=== PATIENT | male | born 1985 | race Caucasian/White ===

== ENCOUNTER 2023-01-21 10:26 | Emergency (ER) | payer OTHER ==
[~2023-01-21] VITALS: Ht 182.8 cm; Wt 125.6 kg
[2023-01-21 10:46] LABS: BASOPHILS % (AUTO) 1 % (0-10); EOSINOPHILS # (AUTO) 0.1 10^3/uL (0.0-0.3); EOSINOPHILS % (AUTO) 1 % (0-10); HEMATOCRIT 49 % (40-54); HEMOGLOBIN 17.1 g/dL (13.3-17.7); LYMPHOCYTES % (AUTO) 33 % (12-44); MEAN CORPUSCULAR HEMOGLOBIN 32 pg (25-34); MEAN CORPUSCULAR HGB CONC 35 g/dL (32-36); MEAN CORPUSCULAR VOLUME 91 fL (80-99); MEAN PLATELET VOLUME 11.2 fL (9.0-12.2); MONOCYTES # (AUTO) 0.4 10^3/uL (0.0-1.0); MONOCYTES % (AUTO) 7 % (0-12); NEUTROPHILS # (AUTO) 3.5 10^3/uL (1.8-7.8); NEUTROPHILS % (AUTO) 58 % (42-75); PLATELET COUNT 177 10^3/uL (130-400); WHITE BLOOD COUNT 6.1 10^3/uL (4.3-11.0)
[2023-01-21 10:52] LABS: ALBUMIN 4.8 GM/DL (3.2-4.5); CHLORIDE 109 MMOL/L (98-107); POTASSIUM 4.2 MMOL/L (3.6-5.0); SODIUM 138 MMOL/L (135-145)
[2023-01-21 10:53] LABS: CALCIUM 9.5 MG/DL (8.5-10.1)
[2023-01-21 10:54] LABS: GLUCOSE 122 MG/DL (70-105); TOTAL PROTEIN 7.6 GM/DL (6.4-8.2)
[2023-01-21 10:55] LABS: CARBON DIOXIDE 20 MMOL/L (21-32)
[2023-01-21 10:56] LABS: BILIRUBIN,TOTAL 0.7 MG/DL (0.1-1.0)
[2023-01-21 10:58] LABS: ALKALINE PHOSPHATASE 55 U/L (40-136); CREATININE SERUM 0.88 MG/DL (0.60-1.30); GFR ESTIMATED 114
[2023-01-21 10:59] LABS: BUN/CREATININE RATIO 16
[2023-01-21 11:01] LABS: ALANINE AMINOTRANSFERASE 62 U/L (0-55); MAGNESIUM 2.1 MG/DL (1.6-2.4)
[2023-01-21 11:03] LABS: INR 0.9 (0.8-1.4); PROTHROMBIN TIME PATIENT 12.9 SEC (12.2-14.7)
--- NOTE | 2023-01-21 11:03 | ED Chest Pain ---
General Chief Complaint: Chest Pain Stated Complaint: CHEST PAIN | HX OF DIABETES AND HYPERTENSION Nursing Triage Note: PT AMB TO [facility] 1 WITH WITH C/O CP ON AND OFF SINCE YESTERDAY. PT STATES THE PAIN STARTED YESTERDAY WHILE AT WORK AND THE PAIN IS OVER HIS L HALEY Source: patient Exam Limitations: no limitations History of Present Illness Date Seen by Provider: Jan 21, 2023 Time Seen by Provider: 10:42 Allergies and Home Medications Allergies Coded Allergies: Penicillins (Verified Allergy, Unknown, 01/21/23) Patient Home Medication List Home Medication List Reviewed: Yes Past Xrjiipz-Diuzdo-Nahryy Hx Patient Social History Tobacco Use?: Yes Tobacco type used: Cigars Smoking Status: Current Someday Smoker Substance use?: No Alcohol Use?: Yes Alcohol Frequency: Rarely Pt feels they are or have been: No Immunizations Up To Date Influenza Vaccine Up-to-Date: No; Not Current Past Medical History Surgery/Hospitalization HX: DM TONSILS Physical Exam Vital Signs Vital Signs - First Documented 01/21/23 10:29 Temp 36.2 Pulse 80 Resp 14 B/P (MAP) 126/85 (99) Pulse Ox 98 O2 Delivery Room Air Capillary Refill : Height, Weight, BMI Height: '" Weight: lbs. oz. kg; 37.00 BMI Method: Progress/Results/Core Measures Results/Orders Lab Results Laboratory Tests Test 01/21/23 10:44 01/21/23 12:46 Range/Units White Blood Count 6.1 4.3-11.0 10^3/uL Red Blood Count 5.40 4.30-5.52 10^6/uL Hemoglobin 17.1 13.3-17.7 g/dL Hematocrit 49 40-54 % Mean Corpuscular Volume 91 80-99 fL Mean Corpuscular Hemoglobin 32 25-34 pg Mean Corpuscular Hemoglobin Concent 35 32-36 g/dL Red Cell Distribution Width 11.8 10.0-14.5 % Platelet Count 177 130-400 10^3/uL Mean Platelet Volume 11.2 9.0-12.2 fL Immature Granulocyte % (Auto) 0 % Neutrophils (%) (Auto) 58 42-75 % Lymphocytes (%) (Auto) 33 12-44 % Monocytes (%) (Auto) 7 0-12 % Eosinophils (%) (Auto) 1 0-10 % Basophils (%) (Auto) 1 0-10 % Neutrophils # (Auto) 3.5 1.8-7.8 10^3/uL Lymphocytes # (Auto) 2.0 1.0-4.0 10^3/uL Monocytes # (Auto) 0.4 0.0-1.0 10^3/uL Eosinophils # (Auto) 0.1 0.0-0.3 10^3/uL Basophils # (Auto) 0.0 0.0-0.1 10^3/uL Immature Granulocyte # (Auto) 0.0 0.0-0.1 10^3/uL Prothrombin Time 12.9 12.2-14.7 SEC INR Comment 0.9 0.8-1.4 Activated Partial Thromboplast Time 32 24-35 SEC Sodium Level 138 135-145 MMOL/L Potassium Level 4.2 3.6-5.0 MMOL/L Chloride Level 109 H 98-107 MMOL/L Carbon Dioxide Level 20 L 21-32 MMOL/L Anion Gap 9 5-14 MMOL/L Blood Urea Nitrogen 14 7-18 MG/DL Creatinine 0.88 0.60-1.30 MG/DL Estimat Glomerular Filtration Rate 114 BUN/Creatinine Ratio 16 Glucose Level 122 H 70-105 MG/DL Calcium Level 9.5 8.5-10.1 MG/DL Corrected Calcium 8.5-10.1 MG/DL Magnesium Level 2.1 1.6-2.4 MG/DL Total Bilirubin 0.7 0.1-1.0 MG/DL Aspartate Amino Transf (AST/SGOT) 32 5-34 U/L Alanine Aminotransferase (ALT/SGPT) 62 H 0-55 U/L Alkaline Phosphatase 55 40-136 U/L Myoglobin 40.0 10.0-92.0 NG/ML Troponin I < 0.028 < 0.028 <0.028 NG/ML Total Protein 7.6 6.4-8.2 GM/DL Albumin 4.8 H 3.2-4.5 GM/DL My Orders Orders - HELENE LARES MD Ekg Tracing (01/21/23 10:28) Cbc And Automated Diff (01/21/23 10:42) Magnesium (01/21/23 10:42) Chest 1 View, Ap/Pa Only (01/21/23 10:42) Comprehensive Metabolic Panel (01/21/23 10:42) Myoglobin Serum (01/21/23 10:42) Protime With Inr (01/21/23 10:42) Partial Thromboplastin Time (01/21/23 10:42) O2 (01/21/23 10:42) Monitor-Rhythm Ecg Trace Only (01/21/23 10:42) Ed Iv/Invasive Line Start (01/21/23 10:42) Troponin I [place] (01/21/23 10:42) Ketorolac Injection (Ketorolac Injection (01/21/23 11:30) Troponin I [place] (01/21/23 12:45) Medications Given in ED Current Medications Medications Dose Ordered Sig/Cathy Route Start Time Stop Time Status Last Admin Dose Admin Ketorolac Tromethamine 30 mg ONCE ONCE IVP 01/21/23 11:30 01/21/23 11:31 DC 01/21/23 11:35 30 MG Vital Signs/I&O 01/21/23 01/21/23 10:29 13:45 Temp 36.2 36.2 Pulse 80 74 Resp 14 14 B/P (MAP) 126/85 (99) 111/73 Pulse Ox 98 99 O2 Delivery Room Air Room Air 2 Blood Pressure Mean: 99 Initial ECG Impression Date: Jan 21, 2023 Initial ECG Impression Time: 10:33 Initial ECG Rate: 77 Initial ECG Rhythm: Normal Sinus Initial ECG Intervals: Normal Initial ECG Impression: Normal Comment Normal sinus rhythm with no ST elevation or depression. No abnormal intervals or axis deviation. Departure Impression Primary Impression: Atypical chest pain Disposition: 01 HOME, SELF-CARE Condition: Improved Departure-Patient Inst. Decision time for Depature: 13:29 Referrals: NO,LOCAL PHYSICIAN (PCP/Family) Primary Care Physician Patient Instructions: Chest Pain That Is Not Caused by the Heart (DC) Add. Discharge Instructions: Based on your evaluation in the emergency room, it is unlikely that your chest pain is related to any cardiac disease or life-threatening problems. You may take ibuprofen up to 600 mg every 6 hours as needed and or Tylenol (acetaminophen) up to 1000 mg every 6 hours as needed for your pain. Return to care if you have pain that does not resolve with these medications or if your pain is accompanied by other concerning symptoms such as shortness of breath, lightheadedness, vomiting, etc. Please schedule follow-up appointment with your primary care provider. All discharge instructions reviewed with patient and/or family. Voiced understanding. Work/School Note: Work Release Form Date Seen in the Emergency Department: Jan 21, 2023 Return to Work: Jan 22, 2023 Restrictions: No Restrictions HELENE LARES MD Jan 21, 2023 11:03
[2023-01-21] MEDS ORDERED: KETOROLAC INJ 30 MG/ML VIAL IVP ONE (11:30)
--- NOTE | 2023-01-21 11:42 | Diagnostic Imaging Report ---
CHEST 1 VIEW, AP/PA ONLY Indication: Chest pain. Comparison: None available. Findings: No focal airspace disease in the visualized lungs. No pleural effusion or pneumothorax. Normal cardiomediastinal silhouette. Impression: 1. No acute cardiopulmonary process by portable radiography. Dictated by: Dictated on workstation # [id number]
[2023-01-21 13:45] VITALS: BP 111/73
== END 2023-01-21 13:48 | disposition home or self-care (01) ==
LOC: EDUNIT# 10:26 → ER 10:28
DX: R07.89 Other chest pain (principal); F17.290 Nicotine dependence, other tobacco product, uncomplicated
CPT/HCPCS: 36415; 71045; 80053; 83735; 83874; 84484; 85025; 85610; 85730; 93005; 93041; 96374